=== PATIENT | female | born 1990 | race Caucasian/White ===

== ENCOUNTER → 2017-05-17 | Outpatient (CLI) | payer OTHER | END | disposition home or self-care (01) | LOC: RAD 13:32 | PROVIDERS: ATTEND Family Medicine | DX: M51.36 Other intervertebral disc degeneration, lumbar region (principal); M25.551 Pain in right hip; M25.552 Pain in left hip; G89.29 Other chronic pain; Q76.49 Other congenital malformations of spine, not associated with scoliosis; Z97.5 Presence of (intrauterine) contraceptive device | CPT/HCPCS: 72100; 73523 ==